=== PATIENT | male | born 1965 | race Caucasian/White ===

== ENCOUNTER 2016-11-30 20:30 | Emergency (ER) | payer BC, OTHER ==
[2016-11-30 20:43] VITALS: BP 128/76
--- NOTE | 2016-11-30 21:05 | ED Physician Documentation ---
PD HPI LOWER EXT INJURY - Stated complaint Stated Complaint: RT TOE PX - Chief complaint Chief Complaint: Ext Problem - History obtained from History obtained from: Patient - History of Present Illness PD HPI LOW EXT INJURY LOCATION: Right, Toe Type of injury: Blunt / blow (into a door jam, second (long toe) tonight) Where injury occurred: Home Review of Systems Constitutional: reports: Reviewed and negative Cardiac: reports: Reviewed and negative Respiratory: reports: Reviewed and negative PD PAST MEDICAL HISTORY - Past Medical History Past Medical History: Yes Neuro: None Endocrine/Autoimmune: HyPOthyroidism Psych: Depression - Past Surgical History Past Surgical History: No Ortho: Other - Present Medications Home Medications: Ambulatory Orders Medication Instructions Recorded Confirmed Levothyroxine [Synthroid] 82 mcg PO DAILY 12/31/14 11/30/16 buPROPion [Wellbutrin Sr] 1 tab DAILY 11/30/16 11/30/16 - Allergies Allergies/Adverse Reactions: Allergies Allergy/AdvReac Type Severity Reaction Status Date / Time No Known Drug Allergies Allergy Verified 11/30/16 20:42 - Social History Does the pt smoke?: No Smoking Status: Unknown if ever smoked Does the pt drink ETOH?: Yes Does the pt have substance abuse?: No - Immunizations Immunizations: TDAP current <10years PD ED PE NORMAL - Vitals Vital signs reviewed: Yes - General General: Alert and oriented X 3, No acute distress - Extremities Extremities: Other (TTP Mid R 2nd toe, but no deformity and ROM is painless.) - Neuro Neuro: Alert and oriented X 3, Normal speech - Psych Psych: Normal mood, Normal affect Results - Vitals Vitals: Vital Signs - 24 hr 11/30/16 20:40 Temperature 36.7 C Heart Rate 56 L Respiratory 18 Rate Blood Pressure 128/76 O2 Saturation 100 Oxygen O2 Source Room air - Rads (name of study) r 2ND TOE Radiology: EMP read contemporaneously (NORMAL) Departure - Departure Disposition: 01 Home, Self Care Clinical Impression: Sprain of toe, second, right Qualifiers: Encounter type: initial encounter Qualified Code(s): S93.504A - Unspecified sprain of right lesser toe(s), initial encounter Condition: Good Record reviewed to determine appropriate education?: Yes Instructions: ED Sprain Foot Comments: RECHECK WITH YOUR PHYSICIAN IN 1 WEEK IF NOT IMPROVING
--- NOTE | 2016-11-30 21:47 | XRAY Preliminary Report ---
Exam: XR Toe(s) RT IMPRESSION: Normal toe radiography. [facility] SITE ID: [id number]
--- NOTE | 2016-11-30 21:49 | XRAY Report ---
EXAM: RIGHT TOE RADIOGRAPHY EXAM DATE: 11/30/2016 09:35 PM. CLINICAL HISTORY: Right second toe injury. COMPARISON: None. TECHNIQUE: 3 views. FINDINGS: Bones: Normal. No fracture or bone lesion. Joints: Normal. No subluxations. Soft Tissues: Normal. No soft tissue swelling. IMPRESSION: Normal toe radiography. [facility] Referring Provider Line: [phone] SITE ID: [id number]
== END 2016-11-30 21:45 | disposition home or self-care (01) ==
LOC: ED 20:30
DX: S93.504A Unspecified sprain of right lesser toe(s), initial encounter (principal); W22.8XXA Striking against or struck by other objects, initial encounter; Y92.019 Unspecified place in single-family (private) house as the place of occurrence of the external cause; E03.9 Hypothyroidism, unspecified
CPT/HCPCS: 73660; 99281; 99282

== ENCOUNTER 2017-08-29 18:14 | Emergency (ER) | payer OTHER ==
[2017-08-29 18:25] VITALS: BP 120/90
--- NOTE | 2017-08-29 19:14 | XRAY Preliminary Report ---
Exam: XR ANKLE 3 VIEW RT IMPRESSION: Normal ankle radiography. [facility] SITE ID: [id number]
--- NOTE | 2017-08-29 19:14 | XRAY Report ---
EXAM: RIGHT ANKLE RADIOGRAPHY EXAM DATE: 08/29/2017 07:00 PM. CLINICAL HISTORY: Ankle inj. COMPARISON: None. TECHNIQUE: 3 views. FINDINGS: Bones: Normal. No fractures or bone lesions. Joints: Normal. No effusion. No subluxations. The ankle mortise is normally aligned. Soft Tissues: Normal. No soft tissue swelling. IMPRESSION: Normal ankle radiography. [facility] Referring Provider Line: [phone] SITE ID: [id number]
--- NOTE | 2017-08-29 19:30 | ED Physician Documentation ---
PD HPI LOWER EXT INJURY - Stated complaint Stated Complaint: RT ANKLE PX - Chief complaint Chief Complaint: Ext Problem - History obtained from History obtained from: Patient - History of Present Illness PD HPI LOW EXT INJURY LOCATION: Right, Ankle (He was at work today and the stepstool he was on broke and he fell a few feet directly onto the ankle. It was not bothering him for a couple of hours but stiffened up after a few hours. He is able to walk and bear weight but with a limp.) Review of Systems Constitutional: reports: Reviewed and negative Cardiac: reports: Reviewed and negative Respiratory: reports: Reviewed and negative PD PAST MEDICAL HISTORY - Past Medical History Cardiovascular: None Respiratory: None Neuro: None Endocrine/Autoimmune: HyPOthyroidism GI: None : None HEENT: None Psych: Depression Musculoskeletal: None Derm: None - Past Surgical History Past Surgical History: No Ortho: Other - Present Medications Home Medications: Ambulatory Orders Medication Instructions Recorded Confirmed Levothyroxine [Synthroid] 82 mcg PO DAILY 12/31/14 08/29/17 buPROPion [Wellbutrin Sr] 1 tab PO DAILY 11/30/16 08/29/17 - Allergies Allergies/Adverse Reactions: Allergies Allergy/AdvReac Type Severity Reaction Status Date / Time No Known Drug Allergies Allergy Verified 08/29/17 18:25 - Social History Does the pt smoke?: No Smoking Status: Never smoker Does the pt drink ETOH?: Yes Does the pt have substance abuse?: No - Immunizations Immunizations: TDAP current <10years - POLST Patient has POLST: No PD ED PE NORMAL - Vitals Vital signs reviewed: Yes - General General: Alert and oriented X 3, No acute distress - Neck Neck: Supple, no meningeal sign, No bony TTP - Extremities Extremities: Other (Right ankle is nontender with full range of motion, no proximal fibular or foot tenderness.) - Neuro Neuro: Alert and oriented X 3, Normal speech Results - Vitals Vitals: Vital Signs - 24 hr 08/29/17 18:22 Temperature 36.8 C Heart Rate 66 Respiratory 14 Rate Blood Pressure 120/90 H O2 Saturation 99 Oxygen O2 Source Room air - Rads (name of study) 3v R an kle Radiology: EMP read contemporaneously (normal) Departure - Departure Disposition: 01 Home, Self Care Clinical Impression: Right ankle sprain Qualifiers: Encounter type: initial encounter Involved ligament of ankle: calcaneofibular ligament Qualified Code(s): S93.411A - Sprain of calcaneofibular ligament of right ankle, initial encounter Condition: Good Record reviewed to determine appropriate education?: Yes Instructions: ED Sprain Ankle W X Ray Comments: Tylenol or ibuprofen as needed for pain. Follow-up with your doctor in 1 week if not better.
== END 2017-08-29 19:53 | disposition home or self-care (01) ==
LOC: ED 18:14
DX: S93.411A Sprain of calcaneofibular ligament of right ankle, initial encounter (principal); W17.89XA Other fall from one level to another, initial encounter; Y99.0 Civilian activity done for income or pay
CPT/HCPCS: 99283

== ENCOUNTER 2018-08-25 22:04 | Emergency (ER) | payer OTHER ==
[2018-08-25 22:21] VITALS: BP 141/74
--- NOTE | 2018-08-25 22:25 | ED Physician Documentation ---
History of Present Illness - Stated complaint Stated Complaint: MALE - Chief complaint Chief Complaint: Abd Pain - History obtained from History obtained from: Patient - Additonal information Additional information: Patient is a 53-year-old male presenting with several days of UTI-like symptoms. Patient reports that he has had a bladder infection in the past and feels like today's symptoms are similar to such. Patient complains of isolated suprapubic tenderness, dysuria, hesitancy with urination, urgency, and inability to empty bladder fully. Patient denies other abdominal pain or flank pain. He also denies fever, nausea, vomiting, stool changes. Patient does report that he had a viral-like illness several weeks ago, although the symptoms have largely resolved. Patient also reports that he does not have a shower at home, but uses a bath and feels like this could be contributing to the issues today. He otherwise denies testicular changes, drainage from penis, lesions to the groin or other rash.No other improving or worsening factors noted to his symptoms. Review of Systems Constitutional: denies: Fever, Chills : reports: Dysuria, Frequency, Hesitancy, Unable to Void PD PAST MEDICAL HISTORY - Past Medical History Cardiovascular: None Respiratory: None Endocrine/Autoimmune: HyPOthyroidism GI: None : None HEENT: None Psych: Depression Musculoskeletal: None Derm: None - Past Surgical History Past Surgical History: No Ortho: Other - Present Medications Home Medications: Ambulatory Orders Medication Instructions Recorded Confirmed Levothyroxine [Synthroid] 82 mcg PO DAILY 12/31/14 08/29/17 buPROPion [Wellbutrin Sr] 1 tab PO DAILY 11/30/16 08/29/17 Cephalexin [Keflex] 500 mg PO BID #10 capsule 08/25/18 - Allergies Allergies/Adverse Reactions: Allergies Allergy/AdvReac Type Severity Reaction Status Date / Time No Known Drug Allergies Allergy Verified 08/25/18 22:16 - Social History Does the pt smoke?: No Smoking Status: Never smoker Does the pt drink ETOH?: Yes Does the pt have substance abuse?: No - Immunizations Immunizations: TDAP current <10years - POLST Patient has POLST: No PD ED PE NORMAL - Vitals Vital signs reviewed: Yes - General General: Alert and oriented X 3, No acute distress, Well developed/nourished - HEENT HEENT: Atraumatic, Moist mucous membranes - Cardiac Cardiac: RRR, No murmur - Respiratory Respiratory: No respiratory distress, Clear bilaterally - Abdomen Abdomen: Normal bowel sounds, Soft, Non distended. No: Non tender (Suprapubic tenderness only. No rebound or guarding.) - Back Back: No CVA TTP - Derm Derm: Normal color, Warm and dry, No rash - Extremities Extremities: No deformity, No tenderness to palpate - Neuro Neuro: Alert and oriented X 3, No motor deficit, No sensory deficit - Psych Psych: Normal mood, Normal affect Results - Vitals Vitals: Vital Signs - 24 hr 08/25/18 22:17 Temperature 36.7 C Heart Rate 71 Respiratory 16 Rate Blood Pressure 141/74 H O2 Saturation 100 Oxygen O2 Source Room air - Labs Labs: Laboratory Tests 08/25/18 22:22 Urine Color YELLOW Urine Clarity CLEAR Urine pH 7.5 Ur Specific [place] 1.010 Urine Protein NEGATIVE Urine Glucose (UA) NEGATIVE Urine Ketones NEGATIVE Urine Occult Blood NEGATIVE Urine Nitrite NEGATIVE Urine Bilirubin NEGATIVE Urine Urobilinogen 0.2 (NORMAL) Ur Leukocyte Esterase NEGATIVE Ur Microscopic Review NOT INDICATED Urine Culture Comments NOT INDICATED PD MEDICAL DECISION MAKING - ED course Complexity details: considered differential, d/w patient, d/w family ED course: Most concerning for uncomplicated cystitis or urinary tract infection. Patient's pain is isolated to the suprapubic area of his abdomen and also complains of urinary changes such as urgency and frequency. Given his age, prostate issues like benign prostatic hypertrophy could also be an issue. Do not have high suspicion for appendicitis, gallbladder disease, diverticulitis, bowel obstruction, AAA, or other renal disease such as nephrolithiasis or pyelonephritis, although considered. Patient also denied symptoms that raise high suspicion for STI's, epididymitis, orchitis, hydrocele, varicocele, testicular torsion, but considered. Urinalysis obtained and returned without signs of infection. Given negative UA, did send urine for G/C testing, although have very low suspicion and do not feel patient requires empiric treatment. Based on clinical symptoms and physical exam findings, feel appropriate to treat for UTI at this time. Discussed use of medications, return precautions, supportive cares, and follow-up. Patient and voiced understanding and are comfortable with discharge plan. Departure - Departure Disposition: 01 Home, Self Care Clinical Impression: Cystitis Condition: Good Instructions: ED UTI Cystitis Male Follow-Up: Familia Hernandez MD [Primary Care Provider] - Within 3 Days Prescriptions: Cephalexin [Keflex] 500 mg PO BID #10 capsule Comments: Clinically, it appears that you have a bladder infection. Please take antibiotic as prescribed. Also recommend duration, healthy diet, and follow-up with your primary care physician in the next 2-3 days. Do recommend avoidance of baths and attempt to shower if possible instead. Return to ED sooner if experience worsening abdominal pain, vomiting, urine or stool changes, fever, or other concerns.
[2018-08-25 22:32] LABS: BILIRUBIN,URINE NEGATIVE (NEGATIVE); CLARITY,URINE CLEAR (CLEAR); GLUCOSE, URINE (UA) NEGATIVE (NEGATIVE); KETONES,URINE (UA) NEGATIVE (NEGATIVE); LEUKOCYTE ESTERASE, URINE NEGATIVE (NEGATIVE); NITRITE,URINE NEGATIVE (NEGATIVE); OCCULT BLOOD,URINE NEGATIVE (NEGATIVE); PH,URINE 7.5 PH (5.0-7.5); PROTEIN,URINE NEGATIVE (NEGATIVE); UROBILINOGEN,URINE 0.2 (NORMAL) E.U./dL (NORMAL)
== END 2018-08-25 22:41 | disposition home or self-care (01) ==
LOC: ED 22:04
DX: N30.90 Cystitis, unspecified without hematuria (principal); E03.9 Hypothyroidism, unspecified
CPT/HCPCS: 81001; 81003; 87086; 87491; 87591; 99283

== ENCOUNTER 2018-09-21 09:41 | Outpatient (CLI) | payer OTHER ==
[2018-09-21] MEDS ORDERED: IOVERSOL 320 100 ML VIAL IVP ONE ×2 (09:52→15:22)
[2018-09-21] MEDS ORDERED: IOVERSOL 320 50 ML VIAL ONE (09:52)
--- NOTE | 2018-09-21 15:16 | CT Report ---
Reason: LOWER ABDOMINAL PAIN,UNSPECIFIED Procedure Date: 09/21/2018 Accession Number: [id number] / [id number] Procedure: CT - Abdomen/Pelvis W CPT Code: FULL RESULT: EXAM: CT ABDOMEN AND PELVIS EXAM DATE: 09/21/2018 11:36 AM. CLINICAL HISTORY: LOWER ABDOMINAL PAIN,UNSPECIFIED. COMPARISONS: ABDOMEN/PELVIS W/ 12/31/2014 2:22 PM. TECHNIQUE: Routine helical CT imaging was performed through the abdomen and pelvis. IV contrast: OPTI 320 100mL. Enteric contrast: No. Reconstructions: Coronal and sagittal. In accordance with CT protocol optimization, one or more of the following dose reduction techniques were utilized for this exam: automated exposure control, adjustment of mA and/or KV based on patient size, or use of iterative reconstructive technique. FINDINGS: Lung Bases: Unremarkable. Liver: Normal. No masses. Gallbladder/Bile Ducts: Unremarkable. Spleen: Normal. Pancreas: Normal. Adrenal Glands: Normal. Kidneys: Normal. No masses or hydronephrosis. Peritoneal Cavity/Bowel: Normal. No free fluid, free air or adenopathy. No masses or acute inflammatory process. The appendix is well visualized and normal. Pelvic Organs: Normal. The bladder and visualized pelvic organs are within normal limits. Vasculature: No aneurysms or other significant abnormality. Bones: No significant abnormality. Other: None. IMPRESSION: Normal abdomen and pelvis CT. [facility]
[2018-09-21] MEDS ORDERED: IOVERSOL 320 50 ML VIAL PO ONE (15:22)
== END 2018-09-21 09:42 | disposition home or self-care (01) ==
LOC: DI 09:41
PROVIDERS: ATTEND Nurse Practitioner Family
DX: R10.30 Lower abdominal pain, unspecified (principal)
CPT/HCPCS: 74177; Q9967

== ENCOUNTER 2018-12-21 17:56 | Inpatient (IN) | payer OTHER ==
[2018-12-21] MEDS ORDERED: HYDROcod/ACETAM 5/325 MG TABLET PO STA (18:25)
[2018-12-21] MEDS ORDERED: IBUPROFEN 800 MG TABLET PO STA (18:25)
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
--- NOTE | 2018-12-21 19:09 | XRAY Report ---
Reason: rib inj Procedure Date: 12/21/2018 Accession Number: [id number] / [id number] Procedure: XR - Ribs w/PA Chest LT CPT Code: FULL RESULT: EXAM: LEFT RIB RADIOGRAPHY EXAM DATE: 12/21/2018 06:28 PM. CLINICAL HISTORY: Trauma, pain. COMPARISON: None. TECHNIQUE: 1 view of the chest and 2 views of the ribs. FINDINGS: Bones: Acute slightly displaced fracture of anterior left sixth rib. Multiple old right rib fractures. Previous resection of left clavicle head. Lungs: Clear. No effusion or pneumothorax. Mediastinum: Heart and mediastinal contours are unremarkable. Upper lobe vessels not distended. Other: None. IMPRESSION: Left anterior sixth rib fracture. [facility] ADDENDUM: 12/21/18 19:21 Upon further review, there is a small left pneumothorax, measuring about 15 mm at the apex.
[2018-12-21 19:58] LABS: BASOPHILS % (AUTO) 0.3 %; EOSINOPHILS % (AUTO) 0.3 %; LYMPHOCYTES # (AUTO) 0.6 10^3/uL (1.5-3.5); LYMPHOCYTES % (AUTO) 6.4 %; MEAN CORPUSCULAR HEMOGLOBIN 31.2 pg (27.0-31.0); MEAN CORPUSCULAR HGB CONC 32.6 g/dL (32.0-36.0); MEAN CORPUSCULAR VOLUME 95.6 fL (80.0-94.0); MEAN PLATELET VOLUME 9.9 fL (7.4-11.4); MONOCYTES # (AUTO) 0.5 10^3/uL (0.0-1.0); MONOCYTES % (AUTO) 5.1 %; NEUTROPHILS # (AUTO) 7.7 10^3/uL (1.5-6.6); NEUTROPHILS % (AUTO) 87.6 %; PLT - PLATELET COUNT 200 10^3/uL (130-450); RED BLOOD COUNT 4.81 10^6/uL (4.70-6.10); RED CELL DISTRIBUTION WIDTH 12.3 % (12.0-15.0); WHITE BLOOD COUNT 8.8 x10^3/uL (4.8-10.8)
[2018-12-21 20:08] LABS: INR 1.1 (0.8-1.2); PT - PROTHROMBIN TIME 12.1 secs (9.9-12.6)
[2018-12-21 20:09] LABS: ALBUMIN 4.4 g/dL (3.2-5.5); ALBUMIN/GLOBULIN RATIO 1.8 (1.0-2.2); BILIRUBIN,TOTAL 0.5 mg/dL (0.2-1.0); CALCIUM 9.3 mg/dL (8.5-10.3); TOTAL PROTEIN 6.8 g/dL (6.7-8.2)
[2018-12-21] MEDS ORDERED: SODIUM CHLORIDE FLUSH 0.9% 10 ML SYRINGE IVP PRN (20:50)
[2018-12-21] MEDS ORDERED: HYDROmorphone 0.5 MG/0.5 ML SYRINGE IVP PRN (20:50)
[2018-12-21] MEDS ORDERED: ONDANSETRON 4 MG/2 ML VIAL IVP PRN (20:50)
[2018-12-21] MEDS ORDERED: DEXTROSE 5%-0.9% NACL 1,000 ML IV SCH (21:00)
[2018-12-21] MEDS: HYDROcod/ACETAM 10 MG/325 MG TABLET PO PRN (22:40)
[2018-12-22] MEDS: SODIUM CHLORIDE FLUSH 0.9% 10 ML SYRINGE IVP SCH ×2 (02:14→02:23)
[2018-12-22] MEDS: HYDROcod/ACETAM 10 MG/325 MG TABLET PO PRN (04:37)
--- NOTE | 2018-12-22 06:51 | XRAY Report ---
Reason: rib fracture and pneumothorax Procedure Date: 12/22/2018 Accession Number: [id number] / [id number] Procedure: XR - Chest 2 View X-Ray CPT Code: 32639 FULL RESULT: EXAM: CHEST RADIOGRAPHY EXAM DATE: 12/22/2018 06:32 AM. CLINICAL HISTORY: Rib fracture and pneumothorax. COMPARISON: RIBS W/PA CHEST LT 12/21/2018 6:28 PM. TECHNIQUE: 2 views. FINDINGS: Lungs/Pleura: Stable small left apical pneumothorax. No focal opacities evident. No significant pleural effusion. Mediastinum: Heart and mediastinal contours are unremarkable. Other: Subtle left lateral sixth rib fracture again visualized. Stable osseous structures with multiple right -sided rib fractures which may be chronic. Old right clavicle fracture and suspected healed right scapular fracture. Widening of left AC joint with apparent resection of left distal clavicle, stable. IMPRESSION: 1. Stable subtle left sixth rib fracture with small left apical pneumothorax. 2. Stable chronic appearing right-sided chest wall fractures. [facility]
[2018-12-22] MEDS ORDERED: LEVOTHYROXINE 88 MCG TABLET PO SCH (07:00)
[2018-12-22 07:41] VITALS: BP 105/63
[2018-12-22] MEDS ORDERED: POLYETHYLENE GLYCOL 3350 17 GM PACKET PO SCH (09:00)
[2018-12-22] MEDS ORDERED: buPROPion XL 150 MG TABLET PO SCH (09:00)
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
--- NOTE | 2018-12-22 13:42 | Discharge Plan ---
Discharge Plan Problem Reviewed?: Yes Disposition: Home, Self Care Condition: Good Prescriptions: HYDROcodone/ACET 10/325 [Edon 10 mg/325 mg] 1 tab PO Q4HR PRN #20 tablet PRN Reason: Pain 8 to 10 Ibuprofen [Ibu] 800 mg PO BID #20 tablet Omeprazole 20 mg PO BID 30 Days capsule. Diet: Regular Activity Restrictions: Do not lift more than 10 pounds for 4 weeks Shower Restrictions: No Driving Restrictions: No (Do not drive while taking narcotic pain medications) Weight Bearing: Full Weight Instruction Topics: Fx Rib, Pneumothorax, ED Pneumothorax Blunt Trauma No Smoking: If you smoke, Please STOP! Call for help. Follow-up with: Familia Hrenandez MD [Primary Care Provider] -
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
== END 2018-12-22 15:32 | disposition home or self-care (01) | DRG 200 ==
LOC: ED 17:56 → MS3 20:50
PROVIDERS: ADMIT Surgery; ATTEND Surgery
DX: S27.0XXA Traumatic pneumothorax, initial encounter (principal); S22.32XA Fracture of one rib, left side, initial encounter for closed fracture; V18.4XXA Pedal cycle driver injured in noncollision transport accident in traffic accident, initial encounter; E03.9 Hypothyroidism, unspecified; F32.9 Major depressive disorder, single episode, unspecified; Z79.899 Other long term (current) drug therapy
CPT/HCPCS: 36415; 71046; 71101; 80053; 83690; 85025; 85610; 99285; A9270; J1170

== ENCOUNTER 2018-12-28 10:16 | Outpatient (CLI) | payer OTHER ==
--- NOTE | 2018-12-29 11:41 | XRAY Report ---
Reason: PNEUMOTHORAX Procedure Date: 12/28/2018 Accession Number: [id number] / [id number] Procedure: XR - Chest 2 View X-Ray CPT Code: 90091 FULL RESULT: EXAM: CHEST RADIOGRAPHY 2 VIEWS EXAM DATE: 12/28/2018. CLINICAL HISTORY: Follow-up left pneumothorax. Persistent shortness of breath. COMPARISON: PA and lateral chest done on 12/22/2018. TECHNIQUE: PA and lateral views. FINDINGS: Lungs/Pleura: The left apical pneumothorax has resolved. The lungs are clear. Normal vasculature. No pleural effusion. Mediastinum: Normal cardiac and mediastinal contours. Bones: Lateral left sixth rib fracture is unchanged. Healed displaced fractures of superior right ribs, and right clavicle, are unchanged. IMPRESSION: Left pneumothorax has resolved. Left lateral sixth rib fracture is unchanged. No acute cardiopulmonary abnormality. RADIA
== END 2018-12-28 10:17 | disposition home or self-care (01) ==
LOC: DI 10:16
PROVIDERS: ATTEND Nurse Practitioner Family
DX: J93.9 Pneumothorax, unspecified (principal); S22.32XA Fracture of one rib, left side, initial encounter for closed fracture
CPT/HCPCS: 71046

== ENCOUNTER 2019-01-20 16:19 | Outpatient (CLI) | payer OTHER ==
--- NOTE | 2019-01-21 09:51 | DEXA Report ---
Reason: CLOSED FRACTURE OF SINGLE LT RIB, PNEUMOTHORAX Procedure Date: 01/20/2019 Accession Number: [id number] / [id number] Procedure: DEX - Dexa Spine and/or Hip CPT Code: FULL RESULT: EXAM: Dexa Spine and/or Hip DATE: 01/20/2019 4:39 PM CLINICAL HISTORY: CLOSED FRACTURE OF SINGLE LT RIB, PNEUMOTHORAX TECHNIQUE: Dual energy x-ray absorptiometry (DXA) was performed on a eduFire System. Regions measured are the AP Spine, femoral neck, and if needed forearm. COMPARISON: None. In accordance with the International Society for Clinical Densitometry (ISCD) guidelines, data from previous exams may be reanalyzed using current recommendations and techniques. This is done to allow a more accurate basis for comparison with the current study. FINDINGS: The data for the lumbar spine is as follows: BMD (g/cm/cm) T-SCORE Z-SCORE REGION L1 1.147 -0.1 0.5 L2 1.242 0.0 0.7 L3 1.259 0.2 0.8 L4 1.223 -0.1 0.5 TOTAL 1.220 0.0 0.7 NOTE: All evaluable vertebrae are used for classification The data for the hip is as follows: BMD (g/cm/cm) T-SCORE Z-SCORE REGION Neck 1.140 0.5 1.6 TOTAL 1.200 0.7 1.3 NOTE: The femoral neck or total proximal femur, whichever is lowest, is used for classification. IMPRESSION: THE WHO CLASSIFICATION BASED ON THE INTERNATIONAL REFERENCE STANDARD IS NORMAL. THE FRACTURE RISK IS NOT INCREASED. RECOMMENDATION: Patients with diagnosis of osteoporosis or osteopenia should have regular bone mineral density assessment. For those eligible for Medicare, routine testing is allowed once every 2 years. Testing frequency can be increased for patients who have rapidly progressing disease or for those who are receiving medical therapy to restore bone mass. COMMENT: World Health Organization (WHO) definitions for osteoporosis and osteopenia: NORMAL BMD: T-score at -1.0 or higher, fracture risk is low OSTEOPENIA BMD: T-score between -1.0 and -2.5, fracture risk is increased. OSTEOPOROSIS BMD: T-score at -2.5 or lower, fracture risk is high. National Osteoporosis Foundation recommends: 1. Obtain adequate dietary calcium (at least 1200 mg per day) and vitamin D (400-800 international units per day). 2. Participate, as appropriate, in regular weightbearing and muscle-strengthening exercise. 3. Avoid tobacco use and reduce alcohol and caffeine intake. 4. For more detailed information see the website at www.NOF.org.
== END 2019-01-20 16:20 | disposition home or self-care (01) ==
LOC: DI 16:19
PROVIDERS: ATTEND Nurse Practitioner Family
DX: S22.32XD Fracture of one rib, left side, subsequent encounter for fracture with routine healing (principal); J93.9 Pneumothorax, unspecified
CPT/HCPCS: 77080

== ENCOUNTER 2019-10-07 18:48 | Outpatient (CLI) | payer OTHER | END 2019-10-07 18:49 | disposition home or self-care (01) | LOC: COV 18:48 | PROVIDERS: ATTEND Family Medicine | DX: R05 Cough (principal); J02.9 Acute pharyngitis, unspecified; R19.7 Diarrhea, unspecified | CPT/HCPCS: 81599 ==

== ENCOUNTER 2020-05-22 18:00 | Outpatient (CLI) | payer OTHER ==
[2020-05-22] MEDS ORDERED: IOVERSOL 320 100 ML VIAL IVP ONE ×2 (18:28→19:42)
[2020-05-22] MEDS ORDERED: IOVERSOL 320 50 ML VIAL ONE (18:28)
[2020-05-22 18:52] LABS: ALBUMIN 4.5 g/dL (3.2-5.5); ALBUMIN/GLOBULIN RATIO 1.8 (1.0-2.2); BILIRUBIN,TOTAL 0.4 mg/dL (0.2-1.0); CALCIUM 9.1 mg/dL (8.5-10.3); CREATININE 0.9 mg/dL (0.6-1.2)
[2020-05-22] MEDS ORDERED: IOVERSOL 320 50 ML VIAL PO ONE (19:43)
--- NOTE | 2020-05-23 09:13 | CT Report ---
PROCEDURE: Abdomen/Pelvis W INDICATIONS: LLQ PAIN CONTRAST: IV CONTRAST: Optiray 320 ml: 100 PO CONTRAST: Optiray 320 ml50 TECHNIQUE: After the administration of nonionic contrast, 5 mm thick sections acquired from the diaphragms to th e symphysis. 5 mm thick coronal and sagittal reformats were acquired. For radiation dose reduction, the following was used: automated exposure control, adjustment of mA and/or kV according to patient size. COMPARISON: None. FINDINGS: Image quality: Excellent. ABDOMEN: Lung bases: Lung bases are clear. Heart size is normal. Solid organs: Liver and spleen are normal in size and enhancement. Gallbladder appears normal Bili sandrine system is non dilated. Pancreas enhances normally. No adrenal nodules. Kidneys demonstrate nor mal size and enhancement, without hydronephrosis. Peritoneum and bowel: Bowel loops demonstrate normal wall thickness and caliber. No free fluid or a ir. Mild to moderate colonic obstipation. Nodes and vessels: No retroperitoneal or mesenteric adenopathy by size criteria. Aorta and inferior vena cava are normal in size. Miscellaneous: No ventral hernias. PELVIS: Genitourinary: Bladder wall thickness is normal. Miscellaneous: No inguinal hernias or adenopathy. Mild to moderate colonic obstipation. Bones: No suspicious bony lesions. No vertebral body compression fractures. IMPRESSION: Mild to moderate colonic obstipation. No area of bowel inflammation is seen. No free flu id is seen throughout the peritoneal space. The colonic obstipation is greater on the right than the left but mild rectal obstipation also is noted. Reviewed by: Marcus Munoz MD on 05/23/2020 9:11 AM [facility] Approved by: Marcus Munoz MD on 05/23/2020 9:11 AM PST Station ID: [id number]
== END 2020-05-22 18:01 | disposition home or self-care (01) ==
LOC: DI 18:00
PROVIDERS: ATTEND Nurse Practitioner Family
DX: R10.32 Left lower quadrant pain (principal); R10.2 Pelvic and perineal pain; K59.00 Constipation, unspecified
CPT/HCPCS: 74177; 80053; Q9967; 36415

== ENCOUNTER 2020-06-15 18:16 | Outpatient (CLI) | payer OTHER ==
--- NOTE | 2020-06-16 09:15 | XRAY Report ---
PROCEDURE: Foot 3 View RT INDICATIONS: Pain in Right Foot TECHNIQUE: 3 views of the foot were acquired. COMPARISON: Right ankle radiographs dated 08/30/2017. FINDINGS: Bones: No acute fractures or dislocations. No suspicious bony lesions. Mild degenerative changes a re seen in the first metatarsophalangeal joint. Soft tissues: No suspicious soft tissue calcification is seen. IMPRESSION: No acute osseous abnormality. If there is clinical concern or persistent symptoms, further evaluation with repeat radiographs or advanced imaging (e.g. CT, MRI) may be obtained for further evaluation. Reviewed by: Alex Jc MD on 06/16/2020 9:14 AM [facility] Approved by: Alex Jc MD on 06/16/2020 9:14 AM PST Station ID: [id number]
== END 2020-06-15 18:17 | disposition home or self-care (01) ==
LOC: DI 18:16
PROVIDERS: ATTEND Nurse Practitioner Family
DX: M79.671 Pain in right foot (principal)

== ENCOUNTER 2020-09-06 18:19 | Outpatient (CLI) | payer OTHER ==
[2020-09-06 18:44] LABS: ALBUMIN 4.3 g/dL (3.2-5.5); ALBUMIN/GLOBULIN RATIO 1.7 (1.0-2.2); BILIRUBIN,TOTAL 0.8 mg/dL (0.2-1.0); CALCIUM 9.7 mg/dL (8.5-10.3); POTASSIUM 4.1 mmol/L (3.5-5.0); TOTAL PROTEIN 6.8 g/dL (6.7-8.2)
== END 2020-09-06 18:20 | disposition home or self-care (01) ==
LOC: LAB 18:19
PROVIDERS: ATTEND Nurse Practitioner Family
DX: R14.0 Abdominal distension (gaseous) (principal)
CPT/HCPCS: 36415; 80053; 82150; 83690

== ENCOUNTER 2020-09-10 13:46 | Emergency (ER) | payer OTHER ==
--- OUTSIDE RECORDS SUMMARY | 2020-09-10 13:49 | EXTERNAL MEDICAL SUMMARY RPT | Continuity of Care Document ---
:1965 Demographics Phone Unavailable Preferred Language Unknown Marital Status Unknown Rastafarian Affiliation Unknown Race Unknown Ethnic Group Unknown Author Organization [place] Address [address] [place] [address] Phone Problems date description facility [id number] [facility] [id number] [facility] Social History date description facility [id number]
--- OUTSIDE RECORDS SUMMARY | 2020-09-10 14:00 | EXTERNAL MEDICAL SUMMARY RPT | Continuity of Care Document ---
:1965 Demographics Phone Unavailable Preferred Language Unknown Marital Status Unknown Jain Affiliation Unknown Race Unknown Ethnic Group Unknown Author Organization [place] Address [address] [place] [address] Phone Problems date description facility [id number] [facility] [id number] [facility] Social History date description facility [id number]
--- NOTE | 2020-09-10 14:12 | ED Physician Documentation ---
PD HPI ABD PAIN - Stated complaint Stated Complaint: ABD PX - Chief complaint Chief Complaint: Abd Pain - History obtained from History obtained from: Patient - Additional information Additional information: This is a very healthy 55-year-old gentleman who for the last 3 weeks has felt bloated with pelvic discomfort now in the flanks over the last few days. He was seen at [facility] and prescribed laxatives which she took yesterday, he had copious bowel output including diarrhea but no change in his bloating or other symptoms. He had a colonoscopy at age 47 without positive findings. He does note that over the last 3 weeks that his stool caliber has gotten smaller. He denies weight changes. He was briefly nauseous last night after taking all the laxatives but otherwise nausea has not been a symptom of this illness. Of note, he is tearful, his longstanding girlfriend with whom he lives broke up with him this morning. That said his symptoms definitely preceded this bad n ews. Review of Systems Ten Systems: 10 systems reviewed and negative Constitutional: reports: Reviewed and negative Cardiac: reports: Reviewed and negative Respiratory: reports: Reviewed and negative PD PAST MEDICAL HISTORY - Past Medical History Cardiovascular: None Respiratory: None Endocrine/Autoimmune: HyPOthyroidism GI: None : None HEENT: None Psych: Depression Musculoskeletal: None Derm: None - Past Surgical History Past Surgical History: No Ortho: Other - Present Medications Home Medications: Ambulatory Orders Medication Instructions Recorded Confirmed Levothyroxine [Synthroid] 88 mcg PO DAILY 12/31/14 09/10/20 buPROPion HCL [Bupropion Xl] 150 mg PO DAILY 12/22/18 09/10/20 Tamsulosin [Flomax] 0.4 mg PO DAILY #14 cap 09/10/20 - Allergies Allergies/Adverse Reactions: Allergies Allergy/AdvReac Type Severity Reaction Status Date / Time No Known Drug Allergies Allergy Verified 09/10/20 13:54 - Social History Does the pt smoke?: No Smoking Status: Never smoker Does the pt drink ETOH?: Yes Does the pt have substance abuse?: No - Immunizations Immunizations: TDAP current <10years - POLST Patient has POLST: No POLST Status: Full Code PD ED PE NORMAL - Vitals Vital signs reviewed: Yes - General General: Alert and oriented X 3, No acute distress - HEENT HEENT: PERRL, EOMI - Neck Neck: Supple, no meningeal sign, No bony TTP - Cardiac Cardiac: RRR, No murmur - Respiratory Respiratory: No respiratory distress, Clear bilaterally - Abdomen Abdomen: Normal bowel sounds, Soft, Non tender - Rectal Rectal: Other (Prostate enlarged but smooth and nontender.) - Back Back: No CVA TTP, No spinal TTP - Derm Derm: Normal color, Warm and dry - Extremities Extremities: No edema, No calf tenderness / cord - Neuro Neuro: Alert and oriented X 3, Normal speech Results - Vitals Vitals: Vital Signs - 24 hr 09/10/20 13:54 Temperature 36.4 C L Heart Rate 78 Respiratory 18 Rate Blood Pressure 136/82 H O2 Saturation 100 Oxygen O2 Source Room air - Labs Labs: Laboratory Tests 09/10/20 09/10/20 09/10/20 14:21 14:27 14:27 WBC 2.9 L RBC 4.84 Hgb 15.4 Hct 46.2 MCV 95.5 H MCH 31.8 H MCHC 33.3 RDW 12.1 Plt Count 260 MPV 10.1 Neut # (Auto) 1.9 Lymph # (Auto) 0.7 L Cascade # (Auto) 0.3 Eos # (Auto) 0.0 Baso # (Auto) 0.0 Absolute Nucleated RBC 0.00 Nucleated RBC % 0.0 Sodium 138 Potassium 4.0 Chloride 101 Carbon Dioxide 27 Anion Gap 10.0 BUN 13 Creatinine 0.9 Estimated GFR (MDRD) 87 L Glucose 92 Calcium 9.4 Total Bilirubin 0.9 AST 33 ALT 27 Alkaline Phosphatase 87 Total Protein 7.8 Albumin 5.0 Globulin 2.8 Albumin/Globulin Ratio 1.8 Lipase 46 Urine Color YELLOW Urine Clarity CLEAR Urine pH 7.0 Ur Specific [place] <=1.005 Urine Protein NEGATIVE Urine Glucose (UA) NEGATIVE Urine Ketones TRACE Urine Occult Blood NEGATIVE Urine Nitrite NEGATIVE Urine Bilirubin NEGATIVE Urine Urobilinogen 0.2 (NORMAL) Ur Leukocyte Esterase NEGATIVE Ur Microscopic Review NOT INDICATED Urine Culture Comments NOT INDICATED PD MEDICAL DECISION MAKING - ED course ED course: 55-year-old gentleman with 3 weeks of pelvic pain cramping and bloating associated with changes in stool caliber. Work-up here shows prostatic hypertrophy on CT without clinical evidence of urinalysis positivity or tenderness on exam. He also has leukopenia but has his second Covid shot within the last 2 weeks and suspect that is related to that. He already has follow-up with urology scheduled and he is started on Flomax in the interim. He also understands the need for follow-up colonoscopy given his changes in stool caliber. Departure - Departure Disposition: 01 Home, Self Care Clinical Impression: Prostate enlargement Abdominal pain Qualifiers: Abdominal location: lower abdomen, unspecified Qualified Code(s): R10.30 - Lower abdominal pain, unspecified Condition: Good Record reviewed to determine appropriate education?: Yes Instructions: ED Prostate Enlarged Follow-Up: Balaji Cordova MD [Provider Admit Priv/Credential] - Prescriptions: Tamsulosin [Flomax] 0.4 mg PO DAILY #14 cap Comments: You are seen today for pelvic and abdominal cramping, changes in stool caliber and urinary frequency. Work-up today demonstrates mild leukopenia, as discussed I suspect this is a result of having your second Covid shot within the last few weeks. Talk with your doctor about a recheck on the complete blood counts may be in a few weeks or a month to see if it has resolved. You do have a large prostate on CAT scan without evidence on exam or urinalysis of prostate or urine infection. The Flomax should help with this. Follow-up with the urologist as scheduled and take the copy of the results with you. You can also follow-up with Dr. Cordova for consideration for colonoscopy given your changes in stool caliber. Return for new or worsening symptoms. Prescription was sent electronically to [email or web address] in [place].
[2020-09-10] MEDS ORDERED: IOPAMIDOL-300 100 ML VIAL ONE (14:15)
[2020-09-10 14:35] LABS: BILIRUBIN,URINE NEGATIVE (NEGATIVE); GLUCOSE, URINE (UA) NEGATIVE (NEGATIVE); KETONES,URINE (UA) TRACE mg/dL (NEGATIVE); LEUKOCYTE ESTERASE, URINE NEGATIVE (NEGATIVE); NITRITE,URINE NEGATIVE (NEGATIVE); OCCULT BLOOD,URINE NEGATIVE (NEGATIVE); PROTEIN,URINE NEGATIVE (NEGATIVE); UROBILINOGEN,URINE 0.2 (NORMAL) E.U./dL (NORMAL)
[2020-09-10 14:37] LABS: CLARITY,URINE CLEAR (CLEAR)
[2020-09-10 14:44] LABS: EOSINOPHILS % (AUTO) 0.7 %; HCT - HEMATOCRIT 46.2 % (42.0-52.0); HGB - HEMOGLOBIN 15.4 g/dL (14.0-18.0); LYMPHOCYTES # (AUTO) 0.7 10^3/uL (1.5-3.5); LYMPHOCYTES % (AUTO) 24.4 %; MEAN CORPUSCULAR HEMOGLOBIN 31.8 pg (27.0-31.0); MEAN CORPUSCULAR HGB CONC 33.3 g/dL (32.0-36.0); MEAN CORPUSCULAR VOLUME 95.5 fL (80.0-94.0); MEAN PLATELET VOLUME 10.1 fL (7.4-11.4); MONOCYTES # (AUTO) 0.3 10^3/uL (0.0-1.0); MONOCYTES % (AUTO) 9.6 %; NEUTROPHILS # (AUTO) 1.9 10^3/uL (1.5-6.6); NEUTROPHILS % (AUTO) 64.3 %; PLT - PLATELET COUNT 260 10^3/uL (130-450); RED BLOOD COUNT 4.84 10^6/uL (4.70-6.10); RED CELL DISTRIBUTION WIDTH 12.1 % (12.0-15.0); WHITE BLOOD COUNT 2.9 x10^3/uL (4.8-10.8)
[2020-09-10 15:00] LABS: ALBUMIN/GLOBULIN RATIO 1.8 (1.0-2.2); BILIRUBIN,TOTAL 0.9 mg/dL (0.2-1.0); CALCIUM 9.4 mg/dL (8.5-10.3); CREATININE 0.9 mg/dL (0.6-1.2); TOTAL PROTEIN 7.8 g/dL (6.7-8.2)
[2020-09-10] MEDS ORDERED: IOPAMIDOL-300 100 ML VIAL IVP ONE (15:22)
--- NOTE | 2020-09-10 15:36 | CT Report ---
PROCEDURE: Abdomen/Pelvis W INDICATIONS: iv only, abd pain CONTRAST: IV CONTRAST: Isovue 300 ml: 100 PO CONTRAST: *NO PO CONTRAST TECHNIQUE: After the administration of nonionic contrast, 5 mm thick sections acquired from the diaphragms to th e symphysis. 5 mm thick coronal and sagittal reformats were acquired. For radiation dose reduction, the following was used: automated exposure control, adjustment of mA and/or kV according to patient size. COMPARISON: 09/21/2018 FINDINGS: Image quality: Excellent. ABDOMEN: Lung bases: Lung bases are clear. Heart size is normal. Solid organs: Liver and spleen are normal in size and enhancement. Gallbladder is unremarkable Ayan iary system is non dilated. Pancreas enhances normally. No adrenal nodules. Kidneys demonstrate no rmal size and enhancement, without hydronephrosis. Peritoneum and bowel: Bowel loops demonstrate normal wall thickness and caliber. Normal appendix. No free fluid or air. Nodes and vessels: No retroperitoneal or mesenteric adenopathy by size criteria. Aorta and inferior vena cava are normal in size. Miscellaneous: No ventral hernias. PELVIS: Genitourinary: Mild circumferential bladder wall thickening. There is mild prostatomegaly with prosta te measuring approximately 5.5 cm in transverse diameter. Miscellaneous: No inguinal hernias or adenopathy. Bones: No suspicious bony lesions. No vertebral body compression fractures. IMPRESSION: Mild circumferential wall thickening of the bladder. Recommend correlation with UA for cystitis. In a ddition this may be due to chronic outlet obstruction given prostatomegaly. No other evidence to suggest an acute intra-abdominal/pelvic abnormality. Reviewed by: Jean-Paul Fisher DO on 09/10/2020 2:34 PM [facility] Approved by: Jean-Paul Fisher DO on 09/10/2020 2:34 PM [facility] Station ID: [id number]
[2020-09-10 16:02] VITALS: BP 118/82
== END 2020-09-10 16:12 | disposition home or self-care (01) ==
LOC: ED 13:46
DX: N40.1 Benign prostatic hyperplasia with lower urinary tract symptoms (principal); R35.0 Frequency of micturition; R10.30 Lower abdominal pain, unspecified; D72.819 Decreased white blood cell count, unspecified
CPT/HCPCS: 36415; 74177; 80053; 81003; 83690; 85025; 99284; Q9967; 81001; 87086

== ENCOUNTER 2020-09-14 18:11 | Outpatient (CLI) | payer OTHER ==
[2020-09-14 18:30] LABS: BASOPHILS % (AUTO) 1.4 %; EOSINOPHILS % (AUTO) 2.4 %; HCT - HEMATOCRIT 43.5 % (42.0-52.0); HGB - HEMOGLOBIN 14.8 g/dL (14.0-18.0); LYMPHOCYTES % (AUTO) 36.1 %; MEAN CORPUSCULAR HEMOGLOBIN 32.7 pg (27.0-31.0); MEAN PLATELET VOLUME 9.8 fL (7.4-11.4); MONOCYTES % (AUTO) 16.3 %; NEUTROPHILS % (AUTO) 43.8 %; PLT - PLATELET COUNT 237 10^3/uL (130-450); RED BLOOD COUNT 4.53 10^6/uL (4.70-6.10); WHITE BLOOD COUNT 2.9 x10^3/uL (4.8-10.8)
[2020-09-14 18:36] LABS: ABNORMAL LYMPHS % (MANUAL) 0 %
[2020-09-14 18:53] LABS: ALBUMIN 4.5 g/dL (3.2-5.5); ALBUMIN/GLOBULIN RATIO 1.9 (1.0-2.2); BILIRUBIN,TOTAL 0.8 mg/dL (0.2-1.0); CREATININE 0.9 mg/dL (0.6-1.2); TOTAL PROTEIN 6.9 g/dL (6.7-8.2)
[2020-09-14 19:17] LABS: BAND NEUTROPHILS % (MANUAL) 3 %; BASOPHILS % (MANUAL) 1 %; EOSINOPHILS # (MANUAL) 0.1 10^3/uL (0-0.7); LYMPHOCYTES # (MANUAL) 0.9 10^3/uL (1.5-3.5); LYMPHOCYTES % (MANUAL) 21 %; MONOCYTES # (MANUAL) 0.4 10^3/uL (0.0-1.0); NEUTROPHILS # (MANUAL) 1.4 10^3/uL (1.5-6.6); REACTIVE LYMPHS % (MANUAL) 11 %
[2020-09-14 19:18] LABS: PLATELET ESTIMATE, MANUAL NORMAL (130-450,000) (NORMAL); PLATELET MORPHOLOGY NORMAL APPEARANCE (NORMAL); RBC MORPHOLOGY (MULTIPLE) NORMAL APPEARANCE (NORMAL)
[2020-09-14 19:19] LABS: DIFFERENTIAL COMMENT MANUAL DIFFERENTIAL; WBC MORPHOLOGY (MULTIPLE) 1+ TOXIC GRANULATION (NORMAL)
[2020-09-14 19:20] LABS: PSA FREE 0.38 ng/mL (0.16-2.81); PSA TOTAL 1.25 ng/mL (0.000-2.000)
== END 2020-09-14 18:12 | disposition home or self-care (01) ==
LOC: LAB 18:11
PROVIDERS: ATTEND Nurse Practitioner Family
DX: N40.0 Benign prostatic hyperplasia without lower urinary tract symptoms (principal); R14.0 Abdominal distension (gaseous); D72.819 Decreased white blood cell count, unspecified; N18.2 Chronic kidney disease, stage 2 (mild)
CPT/HCPCS: 36415; 80053; 82150; 83690; 84153; 84154; 85025

== ENCOUNTER 2020-09-26 16:20 | Outpatient (CLI) | payer OTHER | END 2020-09-26 16:21 | disposition home or self-care (01) | LOC: COV 16:20 | PROVIDERS: ATTEND Physician Assistant | DX: Z01.812 Encounter for preprocedural laboratory examination (principal); Z20.822 Contact with and (suspected) exposure to COVID-19 ==

== ENCOUNTER 2020-12-01 18:37 | Outpatient (CLI) | payer OTHER ==
[2020-12-01 19:18] LABS: THYROID STIMULATING HORMONE 2.28 uIU/mL (0.34-5.60)
== END 2020-12-01 18:38 | disposition home or self-care (01) ==
LOC: LAB 18:37
PROVIDERS: ATTEND Nurse Practitioner Family
DX: E03.9 Hypothyroidism, unspecified (principal)
CPT/HCPCS: 36415; 84443

== ENCOUNTER 2021-04-18 16:00 | Outpatient (CLI) | payer OTHER ==
[2021-04-18 16:32] LABS: BASOPHILS % (AUTO) 1.3 %; EOSINOPHILS # (AUTO) 0.1 10^3/uL (0.0-0.7); EOSINOPHILS % (AUTO) 1.6 %; HGB - HEMOGLOBIN 15.5 g/dL (14.0-18.0); LYMPHOCYTES # (AUTO) 0.9 10^3/uL (1.5-3.5); MEAN CORPUSCULAR HEMOGLOBIN 33.2 pg (27.0-31.0); MEAN CORPUSCULAR HGB CONC 33.7 g/dL (32.0-36.0); MEAN CORPUSCULAR VOLUME 98.5 fL (80.0-94.0); MEAN PLATELET VOLUME 10.1 fL (7.4-11.4); MONOCYTES # (AUTO) 0.4 10^3/uL (0.0-1.0); MONOCYTES % (AUTO) 11.1 %; NEUTROPHILS # (AUTO) 1.9 10^3/uL (1.5-6.6); NEUTROPHILS % (AUTO) 58.7 %; PLT - PLATELET COUNT 206 10^3/uL (130-450); RED BLOOD COUNT 4.67 10^6/uL (4.70-6.10); WHITE BLOOD COUNT 3.2 x10^3/uL (4.8-10.8)
[2021-04-18 16:46] LABS: AMYLASE 155 U/L (28-100); LIPASE 54 U/L (22-51)
[2021-04-18 17:02] LABS: THYROID STIMULATING HORMONE 2.03 uIU/mL (0.34-5.60)
[2021-04-18 17:13] LABS: FOLATE 21.43 ng/mL (5.90 - >24.8)
[2021-04-18 23:03] LABS: CHLAMYDIA TRACHOMATIS DNA NEGATIVE (NEGATIVE); NEISSERIA GONORRHOEAE DNA NEGATIVE (NEGATIVE)
[2021-04-20 14:20] LABS: HIV AG/AB 4TH GEN NON-REACTIVE (NON-REACTIVE)
[2021-04-20 15:52] LABS: HSV 1 IGG TYPE SPECIFIC AB <0.90 index
[2021-04-20 19:51] LABS: HEPATITIS BE ANTIGEN NONREACTIVE
== END 2021-04-18 16:01 | disposition home or self-care (01) ==
LOC: LAB 16:00
PROVIDERS: ATTEND Nurse Practitioner Family
DX: E03.9 Hypothyroidism, unspecified (principal); Z11.3 Encounter for screening for infections with a predominantly sexual mode of transmission; R74.8 Abnormal levels of other serum enzymes; D75.89 Other specified diseases of blood and blood-forming organs
CPT/HCPCS: 36415; 82150; 82607; 82746; 83690; 84443; 85025; 86317; 86592; 86695; 86696; 87350; 87389; 87491; 87591; 87661

== ENCOUNTER 2022-08-28 17:34 | Outpatient (CLI) | payer OTHER ==
--- NOTE | 2022-08-29 00:48 | MRI Report ---
PROCEDURE: ANKLE WO - RT INDICATIONS: RIGHT PERONEAL TENDINOSIS TECHNIQUE: Noncontrast sagittal T1 spin echo and T2 fast spin echo with fat saturation, axial proton density fas t spin echo and T2 fast spin echo with fat saturation, coronal T1 spin echo and T2 fast spin echo wit h fat saturation through the ankle/hindfoot. COMPARISON: None. FINDINGS: Image quality: Excellent. Bones and joints: No bone marrow contusions or fractures. No hindfoot coalitions. No osteochondral injuries of the talar dome. There are small tibiotalar and subtalar joint effusions. A small loculat ed joint recesses demonstrated posterior to the subtalar joint. Medial structures: The posterior tibialis, flexor digitorum longus, and flexor hallucis longus tendo ns are intact. The posterior tibial neurovascular bundle appears normal within the tarsal tunnel, wi thout extrinsic mass effect. The deep layer (anterior and posterior tibiotalar ligaments) and superf icial layer (tibionavicular, tibiospring, and tibiocalcaneal ligaments) of the deltoid ligament appea r intact. The spring ligament components (superomedial calcaneonavicular, medioplantar oblique calca neonavicular, and inferoplantar longitudinal ligaments) are also intact. Lateral structures: The anterior talofibular, calcaneofibular, and posterior talofibular ligaments a ppear intact. More superiorly, the anterior and posterior tibiofibular ligaments appear normal, as i s the intermalleolar ligament. The tibiofibular syndesmosis is normal in width at 2 mm or less. The peroneus longus and brevis tendons demonstrate normal location and morphology with minimal peritendi nous edema distally. Adjacent bony peroneal tubercle and retrotrochlear prominence are normal in siz e. The sinus tarsi demonstrates preserved fatty signal with mild edema. Anterior structures: The tibialis anterior, extensor hallucis longus, and extensor digitorum longus tendons appear intact. The dorsal talonavicular ligament appears intact. Posterior and plantar structures: Achilles tendon is intact. Medial and lateral bands of the planta r fascia are of normal thickness. No abductor digiti quinti muscle atrophy to suggest White neuropa thy. IMPRESSION: 1. Minimal peritendinitis along the distal peroneal tendons which otherwise appear normal in morpholo gy and intact. 2. Small tibiotalar and subtalar joint effusions with a small loculated joint recess posterior to the subtalar joint. 3. Mild edema in the sinus tarsi may reflect sequelae of ligamentous sprains. Reviewed by: Aly Randall MD on 08/29/2022 12:46 AM PDT Approved by: Aly Randall MD on 08/29/2022 12:46 AM PDT Station ID: [id number]
== END 2022-08-28 17:35 | disposition home or self-care (01) ==
LOC: DI 17:34
PROVIDERS: ATTEND Orthopaedic Surgery Foot and Ankle Surgery
DX: M67.88 Other specified disorders of synovium and tendon, other site (principal); M25.471 Effusion, right ankle; R93.6 Abnormal findings on diagnostic imaging of limbs; R93.89 Abnormal findings on diagnostic imaging of other specified body structures